=== PATIENT | female | born 1950 | race Caucasian/White ===

== ENCOUNTER 2018-02-20 15:27 | Emergency (ER) | payer OTHER, SELFPAY ==
[2018-02-20 15:28] VITALS: BP 208/87; PULSE 80; RESP 14; TEMP 36.6; O2SAT 98; BMI 22.8
--- NOTE | 2018-02-20 15:36 | ED.SKABFB ---
HPI - Skin/Abscess/Foreign Bdy General Chief complaint: Skin/Abscess/Foreign Body Stated complaint: BUMP RT SIDE Time Seen by Provider: 02/20/18 15:36 History of Present Illness HPI narrative: 67-year-old female here for complaint of pain into a lateral ribcage since yesterday. She reports that the pain is increased with movement of that area. She denies any trauma to the area. No shortness of breath. No chest pain. Pain is limited to the right ribcage area. Pain is also reproduced with touch to the area. No other concerns or complaints. Related Data Home Medications Medication Instructions Recorded Confirmed topiramate [Topamax] 25 mg PO QDAY #0 cap 08/01/16 02/20/18 topiramate [Topamax] 100 mg PO BID #0 08/01/16 02/20/18 clonazepam 1 tab PO BID PRN 02/20/18 02/20/18 Previous Rx's Medication Instructions Recorded hydrocodone-acetaminophen [[place]] 1 tab PO Q4-6H PRN #5 tab 02/20/18 Allergies Allergy/AdvReac Type Severity Reaction Status Date / Time lisinopril [LISINOPRIL] AdvReac Unknown COUGH Verified 02/20/18 15:33 Review of Systems Constitutional Denies chills, Denies fever(s), Denies lethargy and Denies weakness Eyes Denies change in vision, Denies eye discharge, Denies irritation and Denies loss of vision Genitourinary Denies hematuria, Denies flank pain, Denies urinary incontinence and Denies urinary urgency Musculoskeletal Comments: Pain to right lateral ribcage Integumentary/Breasts Denies pruritus, Denies erythema, Denies rash and Denies wounds Neurologic Denies loss of vision and Denies weakness [facility] Social History Smoking Status: Former smoker Exam Const General: cooperative and well developed Nutritional Appearance: well nourished Orientation: alert, awake, oriented x3 and not confused [facility] Head: normal to inspection and normocephalic Eyes Pupils: PERRL EOM: EOM intact bilaterally Chest Chest: normal inspection of the chest, normal palpation of entire chest wall and No rash Other: Tenderness with palpation to the right lateral rib cage. No ecchymosis. No deformity. No erythema Resp Effort & Inspection: normal respiratory effort, able to speak in complete sentences, no respiratory distress and no use of accessory muscles Auscultation: clear to auscultation bilaterally, no rales, no rhonchi and no wheezes Cardio Rate: regular rate Rhythm: regular rhythm Heart Sounds: no click, no gallops, no murmurs and no rubs GI Inspection: non-distended Palpation: soft, no hepatosplenomegaly, No guarding, No pulsatile mass and No tender Auscultation: normal bowel sounds Skin General: no rashes or lesions noted, No jaundice and No petechiae MDM - Skin/Abscess/Foreign Bdy MDM Narrative Medical decision making narrative: Signs and symptoms presents as strain into the right ribcage area. Differential of early shingles with no rash as of yet. [id number] Tylenol or Motrin as needed for any discomfort. [place] is prescribed for breakthrough pain. Follow up with primary care provider later this week for re-evaluation. For any worsening symptoms return to the emergency room. Discharge Plan Departure Patient Disposition: Home, Self-Care Clinical Impression: Rib pain on right side Discharge Date/Time: 02/20/18 16:40 Interventions: ED Discharge Assessment Last Done: 02/20/18 16:40 Instructions: Muscle Strain Activity Restrictions/Additional Instructions: Signs and symptoms presents as strain into the muscles of the right ribcage. Use [id number] Tylenol or Motrin as needed for any discomfort. Follow up with primary care provider later this week for re-evaluation. For any worsening symptoms return to the emergency room. Prescriptions: New hydrocodone-acetaminophen [[place]] 5-325 mg tablet 1 tab PO Q4-6H PRN (Reason: pain) Qty: 5 RF: 0 No Action topiramate [Topamax] 25 MG capsule, sprinkle 25 mg PO QDAY Qty: 0 RF: 0 topiramate [Topamax] 100 MG tablet 100 mg PO BID Qty: 0 RF: 0 clonazepam 0.5 MG tablet 1 tab PO BID PRN (Reason: Anxiety) RF: 0 Referrals: Sudhir Jung MD [Primary Care Provider] - Course Last Vital Signs Temp 97.9 F 02/20/18 15:28 Pulse 80 02/20/18 16:19 Resp 16 02/20/18 16:19 BP 178/78 H 02/20/18 16:17 Pulse Ox 100 02/20/18 16:19
--- NOTE | 2018-02-20 16:14 | ED_ITS ---
HPI - Skin/Abscess/Foreign Bdy General Chief complaint: Skin/Abscess/Foreign Body Stated complaint: BUMP RT SIDE Time Seen by Provider: 02/20/18 15:36 History of Present Illness HPI narrative: 67-year-old female here for complaint of pain into a lateral ribcage since yesterday. She reports that the pain is increased with movement of that area. She denies any trauma to the area. No shortness of breath. No chest pain. Pain is limited to the right ribcage area. Pain is also reproduced with touch to the area. No other concerns or complaints. Related Data Home Medications Medication Instructions Recorded Confirmed topiramate [Topamax] 25 mg PO QDAY #0 cap 08/01/16 02/20/18 topiramate [Topamax] 100 mg PO BID #0 08/01/16 02/20/18 clonazepam 1 tab PO BID PRN 02/20/18 02/20/18 Previous Rx's Medication Instructions Recorded hydrocodone-acetaminophen [[place]] 1 tab PO Q4-6H PRN #5 tab 02/20/18 Allergies Allergy/AdvReac Type Severity Reaction Status Date / Time lisinopril [LISINOPRIL] AdvReac Unknown COUGH Verified 02/20/18 15:33 Review of Systems Constitutional Denies chills, Denies fever(s), Denies lethargy and Denies weakness Eyes Denies change in vision, Denies eye discharge, Denies irritation and Denies loss of vision Genitourinary Denies hematuria, Denies flank pain, Denies urinary incontinence and Denies urinary urgency Musculoskeletal Comments: Pain to right lateral ribcage Integumentary/Breasts Denies pruritus, Denies erythema, Denies rash and Denies wounds Neurologic Denies loss of vision and Denies weakness [facility] Social History Smoking Status: Former smoker Exam Const General: cooperative and well developed Nutritional Appearance: well nourished Orientation: alert, awake, oriented x3 and not confused [facility] Head: normal to inspection and normocephalic Eyes Pupils: PERRL EOM: EOM intact bilaterally Chest Chest: normal inspection of the chest, normal palpation of entire chest wall and No rash Other: Tenderness with palpation to the right lateral rib cage. No ecchymosis. No deformity. No erythema Resp Effort & Inspection: normal respiratory effort, able to speak in complete sentences, no respiratory distress and no use of accessory muscles Auscultation: clear to auscultation bilaterally, no rales, no rhonchi and no wheezes Cardio Rate: regular rate Rhythm: regular rhythm Heart Sounds: no click, no gallops, no murmurs and no rubs GI Inspection: non-distended Palpation: soft, no hepatosplenomegaly, No guarding, No pulsatile mass and No tender Auscultation: normal bowel sounds Skin General: no rashes or lesions noted, No jaundice and No petechiae MDM - Skin/Abscess/Foreign Bdy MDM Narrative Medical decision making narrative: Signs and symptoms presents as strain into the right ribcage area. Differential of early shingles with no rash as of yet. [id number] Tylenol or Motrin as needed for any discomfort. [place] is prescribed for breakthrough pain. Follow up with primary care provider later this week for re-evaluation. For any worsening symptoms return to the emergency room. Discharge Plan Departure Patient Disposition: Home, Self-Care Clinical Impression: Rib pain on right side Discharge Date/Time: 02/20/18 16:40 Interventions: ED Discharge Assessment Last Done: 02/20/18 16:40 Instructions: Muscle Strain Activity Restrictions/Additional Instructions: Signs and symptoms presents as strain into the muscles of the right ribcage. Use [id number]-cfsqser Tylenol or Motrin as needed for any discomfort. Follow up with primary care provider later this week for re-evaluation. For any worsening symptoms return to the emergency room. Prescriptions: New hydrocodone-acetaminophen [[place]] 5-325 mg tablet 1 tab PO Q4-6H PRN (Reason: pain) Qty: 5 RF: 0 No Action topiramate [Topamax] 25 MG capsule, sprinkle 25 mg PO QDAY Qty: 0 RF: 0 topiramate [Topamax] 100 MG tablet 100 mg PO BID Qty: 0 RF: 0 clonazepam 0.5 MG tablet 1 tab PO BID PRN (Reason: Anxiety) RF: 0 Referrals: Sudhir Jung MD [Primary Care Provider] - Course Last Vital Signs Temp 97.9 F 02/20/18 15:28 Pulse 80 02/20/18 16:19 Resp 16 02/20/18 16:19 BP 178/78 H 02/20/18 16:17 Pulse Ox 100 02/20/18 16:19
[2018-02-20 16:17] VITALS: BP 178/78
[2018-02-20 16:19] VITALS: PULSE 80; RESP 16; O2SAT 100
--- NOTE | 2018-02-25 11:14 | DI.RAD.S_ITS ---
PROCEDURE: XR RIBS RT MIN 3V W CXR 1V INDICATIONS: right rib and upper quadrant pain 1 week, no trauma TECHNIQUE: 3 views of the right ribs were acquired, along with a single view chest. COMPARISON: [facility], , CHEST 2 VIEW, 12/15/2016, 13:15. FINDINGS: Surgical changes and devices: None. Bones and chest wall: No fractures or dislocations. No suspicious bony lesions. Overlying soft tissues appear unremarkable. Lungs and pleura: No pleural effusions or pneumothorax. Lungs appear clear. Mediastinum: Mediastinal contours appear normal. Heart size is normal. IMPRESSION: No visualized acute fracture or dislocation. However, if clinical concern and/or pain persist, short interval imaging followup in 7-10 days is recommended, as occult injury cannot be definitively excluded. Dictated by: Radha Parker M.D. on 02/25/2018 at 15:28 Approved by: Radha Parker M.D. on 02/25/2018 at 15:28
[2018-02-25 12:31] LABS: Add Manual Diff / Slide Review NO; Basophils Percent Auto 0.9 % (0-2); Eosinophils Percent Auto 1.7 % (2-4); Hematocrit 42.7 % (36-46); Hemoglobin 14.4 g/dL (12.0-16.0); Lymphocytes Percent Auto 40.3 % (25-40); Mean Corpuscular HGB Conc 33.7 % (30-36); Mean Corpuscular Hemoglobin 30.2 PG (26-34); Mean Corpuscular Volume 89.7 fL (80-100); Monocytes Percent Auto 6.3 % (3-14); Neutrophils Absolute Auto 2800 /uL (3000-5900); Neutrophils Percent Auto 50.8 % (50-75); Platelet Count 272 X10^3/uL (150-400); Red Blood Cell Count 4.76 X10^6/uL (4.0-5.2); Red Cell Distribution Width 13.6 % (11.6-14.8); White Blood Cell Count 5.5 X10^3/uL (4.5-11.0)
[2018-02-25 12:34] LABS: Alanine Aminotransferase 24 IU/L (9-52); Albumin 4.5 g/dL (3.5-5.0); Albumin Globulin Ratio 1.5 (1.0-2.8); Alkaline Phosphatase 88 U/L (38-126); Aspartate Aminotransferase 21 IU/L (14-36); BUN Creatinine Ratio 13.8 (6-22); Bilirubin Total 0.5 mg/dL (0.2-1.3); Calcium 9.9 mg/dL (8.4-10.2); Estimated Glomerular Filt Rate > 60.0 mL/min (>60); Globulin 3.1 g/dL (1.7-4.1); Glucose 90 mg/dL (80-110); HEMOLYSIS < 15 (0-50); Potassium 3.7 mmol/L (3.4-5.1); Sodium 145 mmol/L (137-145); Total Protein 7.6 g/dL (6.3-8.2)
== END 2018-02-20 16:40 | disposition home or self-care (01) ==
PROVIDERS: Emergency Provider Nurse Practitioner Family; Family Provider Family Medicine; PCP Family Medicine
DX: R07.81 Pleurodynia (principal); R10.11 Right upper quadrant pain
CPT/HCPCS: 36415; 71101; 80053; 85025; 99282; 99283

== ENCOUNTER → 2018-02-25 11:09 | Outpatient (CLI) | payer OTHER, SELFPAY | LOC: DI 04-05 12:15 → RAD 04-05 15:23 | PROVIDERS: Family Provider Family Medicine; PCP Family Medicine; Visit Provider Family Medicine | DX: R07.81 Pleurodynia (principal); R10.11 Right upper quadrant pain ==

== ENCOUNTER → 2018-08-20 13:56 | Outpatient (CLI) | payer OTHER, SELFPAY ==
--- NOTE | 2018-08-20 | DI.MG.S_ITS ---
BILATERAL DIGITAL SCREENING MAMMOGRAM 3D/2D WITH CAD: 08/20/2018 CLINICAL: Routine screening. Family history of breast cancer. Comparison is made to exams dated: 07/27/2017 mammogram, 01/26/2015 mammogram - [facility], and 11/19/2012 mammogram - [facility]. There are scattered fibroglandular elements in both breasts. Current study was also evaluated with a Computer Aided Detection (CAD) system. No significant masses, calcifications, or other findings are seen in either breast. There has been no significant interval change. IMPRESSION: NEGATIVE There is no mammographic evidence of malignancy. A 1 year screening mammogram is recommended. This exam was interpreted at Station ID: [id number]. NOTE: For mammograms, a report in lay terms will be sent to the patient. Approximately 15% of breast malignancies will not be visualized mammographically. In the management of a palpable breast mass, a negative mammogram must not discourage biopsy of a clinically suspicious lesion. Electronically Signed By: Marc yates/pato:08/20/2018 16:14:04 letter sent: Normal Exam ACR BI-RADS Category 1: Negative [id number]
== END ==
PROVIDERS: PCP Family Medicine; Visit Provider Student in an Organized Health Care Education/Training Program
DX: Z12.31 Encounter for screening mammogram for malignant neoplasm of breast (principal); Z80.3 Family history of malignant neoplasm of breast
CPT/HCPCS: 77063; 77067

== ENCOUNTER → 2018-09-10 10:28 | Outpatient (CLI) | payer OTHER, SELFPAY ==
[2018-09-10 12:09] LABS: Cholesterol 241 mg/dL (140-199); HDL Cholesterol 59 mg/dL (40-60); LDL Cholesterol Calculated 142 mg/dL (<100); Triglycerides 200 mg/dL (35-150)
[2018-09-10 12:24] LABS: Vitamin D 25 Hydroxy (D3) 42.5 ng/mL (30.0-100.0)
== END ==
PROVIDERS: PCP Student in an Organized Health Care Education/Training Program; Visit Provider Student in an Organized Health Care Education/Training Program
DX: E55.9 Vitamin D deficiency, unspecified (principal); Z13.220 Encounter for screening for lipoid disorders
CPT/HCPCS: 36415; 80061; 82306

== ENCOUNTER 2018-11-11 11:48 | Day surgery (SDC) | payer OTHER, SELFPAY ==
[2018-11-11] VITALS (8 sets, daily range): BP systolic 117–168; BP diastolic 64–84; PULSE 62–73; RESP 12–20; TEMP 36.1–36.8; O2SAT 94–100; BMI 22.6
[2018-11-11] MEDS: SODIUM CHLORIDE 0.9% 1,000 ML 21 ML IV (12:19)
--- NOTE | 2018-11-11 12:43 | PM.HP.1 ---
History of Present Illness Date Patient Seen: 11/11/18 Time Patient Seen: 12:43 Chief complaint: 52001 SCREENING COLONOSCOPY Narrative: Wonderful 67-year-old lady presents today for screening colonoscopy. She reports her last colonoscopy was 13 years ago and was normal. She denies any new problems or symptoms related to the function of her GI tract reports she needs a colonoscopy as part of a health maintenance program. Patient History Medical History Ankle pain (Chronic 2013) Anxiety (Chronic 2001) Depression (Chronic 2001) Seizures (Chronic 2001) Kidney stones (Resolved 1995) Surgical History Anesthesia (Resolved) Status post brain surgery (Resolved 2001) Status post hysterectomy (Resolved 1993) Family History Family/Other Mental health problem Grandmother Diabetes mellitus Mother Mental health problem Sister Brain cancer Cancer Social History household members: spouse Smoking Status: Former smoker Family & Social History Family History Family/Other Mental health problem Grandmother Diabetes mellitus Mother Mental health problem Sister Brain cancer Cancer Social History: household members spouse Tobacco & Substance use: Smoking Status Former smoker alcohol intake frequency holiday/special occasion Substance Use Type does not use Meds Home Medications Medication Instructions Recorded Confirmed Type topiramate [Topamax] 25 mg PO QDAY #0 cap 08/01/16 11/11/18 History topiramate [Topamax] 100 mg PO BID #0 08/01/16 11/11/18 History clonazepam 0.5 mg tablet 0.5 mg PO BID PRN #45 tab 09/10/18 11/11/18 Rx Allergies Allergy/AdvReac Type Severity Reaction Status Date / Time lisinopril [LISINOPRIL] AdvReac Unknown COUGH Verified 11/11/18 12:04 Review of Systems Review of Systems All systems reviewed & are unremarkable except as noted in HPI and below Exam Vital Signs (past 8 hours): - 11/11/18 12:18 Temperature 98.3 F Pulse Rate 62 Respiratory Rate 16 Blood Pressure 168/84 H Pulse Oximetry 100 Oxygen Delivery Method Room Air Narrative Exam Narrative: Very pleasant well-nourished well-developed lady in no obvious distress HEENT: Normocephalic and atraumatic, pupils equal round reactive to light accommodation with anicteric sclera Lungs: Clear bilaterally Heart: Regular rate and rhythm Abdomen: Soft, nontender, active bowel sounds Extremities: Warm and well perfused and without edema Assessment & Plan Plan: Assessment/Plan Narrative: Very pleasant and generally healthy 67-year-old lady here for screening colonoscopy. She does have a history of having had a meningioma removed from the left frontal region about 13 years ago and so she has a seizure disorder that is treated with topiramate and clonazepam. We discussed the risks and benefits of this procedure the patient expressed a desire to complete it today.
[2018-11-11] MEDS: MIDAZOLAM 5 MG/5 ML VIAL IV (13:04)
[2018-11-11] MEDS: fentaNYL 250 MCG/5 ML INJ IV (13:05)
--- NOTE | 2018-11-11 13:22 | PM.OP.1 ---
Operative Date/Time/Diagnoses Date of procedure: 11/11/18 Time of procedure: 13:22 Pre-op diagnosis: Screening Post-op diagnosis: same Procedure & Clinicians Procedure: Attempted colonoscopy Same procedure as scheduled: Yes Indications: Last colonoscopy 13 years ago Surgeon: Abi Brooks Anesthesia Type: Sedation (Versed 8 mg; fentanyl 250 mcg) Operative Notes Findings: 1. Unable to complete the procedure due to idiosyncratic reaction to medications 2. Colon examined to the mid transverse colon without evidence of neoplasia 3. Tortuous sigmoid region 4. Recommend rescheduling procedure with MD anesthesia after cardiac evaluation has been completed Closure Type: not applicable Specimen(s): none sent Procedure in detail: After obtaining informed consent, the patient was brought to the GI suite and placed in the left lateral decubitus position on the examination table. After placement of appropriate monitors, the patient was given incremental doses of Versed and Fentanyl until an appropriate level of sedation was achieved. A time out was held per SCOAP protocol. A digital rectal examination was performed and did not reveal any masses or obstructing lesions. The colonoscope was gently passed into the patient's anus and the entire colon navigated to the level of the midtransverse colon with minimal difficulty. It was at this point that the patient became bradycardic to approximately 37 min and then seconds later was tachycardic into the 120s. She was nearly apneic with greatly depressed respiratory rate the 2nd after having been complaining bitterly of discomfort. Patient's breathing was supported with a chin left and oxygen and sats remained above 90. The tachycardia gradually resolved and the patient returned to the mid 60s for resting heart rate. The colonoscope was withdrawn from our stopping point in the mid transverse colon with a very cursory examination of the distal colon. Procedure was aborted due to patient's intolerance to and idiosyncratic reaction to IV sedation. I have recommended a cardiac evaluation followed by rescheduling of this procedure with MD anesthesia only. Any additional procedures should be scheduled with MD anesthesia. The patient was taken to the postanesthesia care unit in satisfactory condition Complications: other (Unable to complete the procedure due to idiosyncratic reaction to medications) Condition: stable Disposition: PACU Plan for aftercare: 1. Return to primary care physician for cardiac evaluation 2. Reschedule the procedure with MD anesthesia support.
--- NOTE | 2018-11-11 13:22 | SUR.OPER ---
1303-PATIENT DESATURATED AND EXPERIENCED BRADYCARDIA. O2 INCREASED ORAL AIRWAY INSERTED AND AMBU BAG UTILIZED PER DR. HARRINGTON. ANESTHESIA-DR. GARCIA CALLED TO ENDO ROOM. AT 1315 PATIENTS O2 SATURATION WAS 98% AND HEART RATE REGULAR AT 66. 1325- PATIENT TRANSPORTED TO PACU IN STABLE CONDITION.
== END 2018-11-11 14:44 ==
PROVIDERS: Surgery; PCP Student in an Organized Health Care Education/Training Program; Visit Provider Surgery
PROC: 0DJD8ZZ Inspection of Lower Intestinal Tract, Via Natural or Artificial Opening Endoscopic (ICD-10-PCS; CPT 45378; principal; 2018-11-11 13:45)
DX: Z12.11 Encounter for screening for malignant neoplasm of colon (principal); Z53.09 Procedure and treatment not carried out because of other contraindication; F41.9 Anxiety disorder, unspecified; R56.9 Unspecified convulsions; Z87.891 Personal history of nicotine dependence
CPT/HCPCS: 45378; J2250; J3010